=== PATIENT | male | born 1960 | race Caucasian/White ===

== ENCOUNTER 2016-10-20 08:07 | Day surgery (SDC) | payer OTHER ==
[2016-10-19 10:02] LABS: HEMATOCRIT 50.1 % (40.0-51.0); HEMOGLOBIN 17.6 g/dL (13.6-17.8)
[2016-10-19 10:09] LABS: BUN (BLOOD UREA NITROGEN) 11 MG/DL (6-23); CALCIUM, SERUM 9.9 MG/DL (8.5-10.4); CHLORIDE, SERUM 103 MMOL/L (96-112); CO2 (CARBON DIOXIDE) 35 MMOL/L (24-34); CREATININE 1.02 MG/DL (0.70-1.30); GFR AFRICAN AMERICAN 96 ML/MIN (>=60); GFR NON AFRICAN AMERICAN 83 ML/MIN (>=60); GLUCOSE, SERUM 93 MG/DL (60-99); POTASSIUM, SERUM 4.5 MMOL/L (3.5-5.3); SODIUM, SERUM 142 MMOL/L (135-148)
--- NOTE | ~2016-10-20 | OP ---
Record Of Operation [facility] [address] [place]. [address] NAME: GRETCHEN SHIN : 64 STATUS : [facility]#: [id number] AGE: 56 ADM/REG DATE : 10/20/16 MR#: [id number] REPORT SERV DATE: 10/20/16 DICTATED BY: PRUDENCIO FUNK DATE: 10/20/16 REPORT STATUS : Draft TRANSCRIBED BY: MODL DATE: 10/20/16 DATE OF PROCEDURE: 10/20/2016 PREOPERATIVE DIAGNOSES: 1. Reducible umbilical hernia. 2. Hypertension. 3. Obesity. POSTOPERATIVE DIAGNOSES: 1. Reducible umbilical hernia. 2. Hypertension. 3. Obesity. PROCEDURE: Open tension-free umbilical hernia repair with mesh. ANESTHESIA: General. SURGEON: Prudencio Funk M.D. CROP CONSULTANT: Janel. COMPLICATIONS: None. DRAINS: None. ESTIMATED BLOOD LOSS: 5 mL. OPERATIVE TECHNIQUE: The patient was brought to the operating room, placed on the table in supine position. He had preoperative IV antibiotics. He had sequential hose in place. He voided prior to procedure. He underwent general endotracheal anesthesia, and was prepped and draped in sterile fashion and a time-out was completed. Local anesthesia was instilled to the periumbilical skin. A 15 blade knife was used to make an infraumbilical circumferential incision from the 3 o'clock position to the 8 o'clock position. The incision was carried through the subcutaneous tissues down the level of the anterior fascia and the dissection then proceeded using blunt dissection with a Vee around the entire hernia sac and it was encircled. It was then dissected off the infraumbilical skin. The hernia sac was then divided at the level of the fascia circumferentially and excised. There was some incarcerated preperitoneal fat. It was excised with electrocautery and discarded. A finger was swept into the defect and circumferentially around the peritoneum, and there was no evidence of other hernia or adhesions. The defect was approximately 11 mm in circumference. At this point, the 4.3 mm Proceed ventral patch was placed in the abdomen with the fascia elevated to the anterior abdominal wall. The straps were then secured to the fascial edges on each side with 2-0 Prolene with tension to hold the mesh to the anterior abdominal wall. Prior to being sewn, the finger was swept between the mesh and peritoneum, and there was no unwanted structures between the mesh and anterior abdominal wall. Next, soft tissue around the defect was mobilized and the primary defect was closed Record Of Operation [facility] [address] [facility] [address] [facility] [id number] NAME: GRETCHEN SHIN : 64 STATUS : [facility] PAT#: [id number] AGE: 56 ADM/REG DATE : 10/20/16 MR#: [id number] REPORT SERV DATE: 10/20/16 DICTATED BY: PRUDENCIO FUNK DATE: 10/20/16 REPORT STATUS : Draft TRANSCRIBED BY: LIA DATE: 10/20/16 using a looped 0 PDS suture. The subcutaneous tissues were then irrigated and noted to be hemostatic. They were reapproximated using 3-0 Vicryl suture followed by running Monocryl subcuticular stitch. Dermabond was applied. He was extubated and taken to the recovery room in stable condition. All sponge and needle counts reported correct. /LIA Prudencio Funk M.D. / [id number] CC: Prudencio Funk M.D.
[~2016-10-20 08:07] MED LIST: ALLEGRA180 PO; HYDROCHLOROT12.5 MG PO; PRIN10 PO; SUDAFED PO
== END 2016-10-20 17:16 | disposition home or self-care (01) ==
LOC: SDC 08:07
PROVIDERS: Surgery
PROC: 0WUF0JZ Supplement Abdominal Wall with Synthetic Substitute, Open Approach (ICD-10-PCS; principal; 2016-10-20 10:00)
DX: K42.9 Umbilical hernia without obstruction or gangrene (principal); I10 Essential (primary) hypertension; E66.9 Obesity, unspecified; Z98.890 Other specified postprocedural states
CPT/HCPCS: 80048; 85014; 85018; 87641; 93005; A9270-GY; C1781; J0690; J1170; J2250; J2405; J2710; J3010